=== PATIENT | male | born 1995 | race Caucasian/White ===

== ENCOUNTER 2019-12-16 16:12 | Emergency (ER) | payer OTHER, SELFPAY ==
[~2019-12-16] VITALS: Ht 185.4 cm; Wt 116.2 kg
[2019-12-16] MEDS ORDERED: IBUP200C25 PO (16:17)
[2019-12-16] MEDS ORDERED: KETOROLAC 30 MG/ML 1ML VIAL IM ONE (18:15)
[2019-12-16] MEDS ORDERED: BENZOCAINE 20% GEL 9GM TUBE (ANBESOL MAX STRENGTH) TOP ONE (18:15)
[2019-12-16 18:57] LABS: BASO % 0.4 % (0.0-1.0); EOS # 0.1 10^3/uL (0.0-0.5); EOS % 0.9 % (0.0-3.0); HEMATOCRIT 45.6 % (42.0-52.0); HEMOGLOBIN 15.4 g/dl (13.5-17.5); LYMPH # 2.3 10^3/uL (1.5-5.0); MEAN CORPUSCULAR HEMOGLOBIN 29.6 pg (27.0-33.0); MEAN CORPUSCULAR HGB CONC 33.8 g/dl (32.0-36.5); MEAN CORPUSCULAR VOLUME 87.7 fl (80.0-96.0); MONO # 0.6 10^3/uL (0.0-0.8); NEUTROPHILS # 7.4 10^3/uL (1.5-8.5); PLATELET COUNT, AUTOMATED 316 10^3/uL (150-450); WHITE BLOOD COUNT 10.6 10^3/uL (4.0-10.0)
[2019-12-16] MEDS ORDERED: ISOVUE-370 76% 100ML VIAL As Ordered ONE (19:03)
--- NOTE | 2019-12-16 19:38 | REPVR ---
PROCEDURE INFORMATION: Exam: CT Maxillofacial With Contrast Exam date and time: 12/16/2019 7:14 PM Age: 24 years old Clinical indication: Other: R/O abscess, R lower jaw pain TECHNIQUE: Imaging protocol: Computed tomography images of the face with intravenous contrast. Radiation optimization: All CT scans at this facility use at least one of these dose optimization techniques: automated exposure control; mA and/or kV adjustment per patient size (includes targeted exams where dose is matched to clinical indication); or iterative reconstruction. Contrast material: ISOVUE 370; Contrast volume: 75 ml; Contrast route: INTRAVENOUS (IV); COMPARISON: No relevant prior studies available. FINDINGS: Orbits: Orbits are normal. Globes are unremarkable. Bones/joints: No acute fracture or dislocation. Paranasal sinuses: Normal. No air-fluid levels. Soft tissues: No soft tissue inflammatory change or discrete drainable fluid collection. Other findings: There is scattered endodontal disease. IMPRESSION: No acute abnormality. No drainable fluid collection. Electronically signed by: Geoff Johnson On 12/16/2019 19:38:34 PM
[2019-12-16] MEDS ORDERED: AUGM875T28 PO (19:54)
[2019-12-16] MEDS ORDERED: IBUP80TA PO (19:54)
[2019-12-16 20:03] VITALS: BP 38/62
== END 2019-12-16 20:04 | disposition home or self-care (01) ==
LOC: M ED 16:12
DX: K02.9 Dental caries, unspecified (principal); K05.6 Periodontal disease, unspecified; Z88.8 Allergy status to other drugs, medicaments and biological substances
CPT/HCPCS: 70487; 80047; 85025; 96372; 99283; J1885; Q9967